=== PATIENT | female | born 1970 | race American Indian/Alaskan Native ===

== ENCOUNTER 2018-01-19 18:57 | Emergency (ER) | payer MEDICAID ==
[2018-01-19 19:26] VITALS: BP 155/101
[2018-01-19] MEDS ORDERED: FLEXERIL PO ONE (21:51)
[2018-01-19] MEDS ORDERED: REGLAN IV ONE (21:51)
[2018-01-19] MEDS ORDERED: BENADRYL IV ONE (21:51)
[2018-01-19] MEDS ORDERED: TORADOL IV ONE (21:51)
--- NOTE | 2018-01-19 21:55 | Emergency Department Report ---
ED General Adult HPI - General Chief complaint: Neck Pain/Injury Stated complaint: BACK PAIN/ARM Time Seen by Provider: 01/19/18 21:49 Source: patient Mode of arrival: Ambulatory Limitations: No Limitations - History of Present Illness Initial comments: 47-year-old -[place] female presents to the emergency room for complaint of upper neck pain. Patient has a history of recurrent back pain. Also she complains of upper arm pain that radiates to her right hand. Patient suspects that she was bitten by a spider on Friday initially there was obvious bite argueta but now healing except for continued pain. Patient complains of a headache with light sensitivity and nausea. Patient reports that she was seen by her primary care doctor Dr. Ward and was placed on diclofenac and Flexeril. Patient has a past medical history of hypertension reports that she takes her medication as prescribed. She has no known drug allergies.. -: days(s) (4) Location: neck, right, upper extremity Radiation: extremity Severity scale (0 -10): 10 Quality: burning, aching Consistency: constant Improves with: none Worsens with: none Treatments Prior to Arrival: NSAID (last dose on Friday) - Related Data Previous Rx's Medication Instructions Recorded Last Taken Type Butalb/Acetamin/Caff 50-325-40 1 tab PO Q6HR PRN #12 tab 01/19/18 Unknown Rx [Fioricet] Allergies Allergy/AdvReac Type Severity Reaction Status Date / Time No Known Allergies Allergy Unverified 01/19/18 19:34 ED Review of Systems ROS: Stated complaint: BACK PAIN/ARM Other details as noted in HPI Constitutional: denies: chills, fever Gastrointestinal: nausea. denies: abdominal pain, vomiting Musculoskeletal: arthralgia (neck pain, right arm pain that radiates to the fingers) Neurological: headache Psychiatric: denies: anxiety, depression Hematological/Lymphatic: denies: easy bleeding, easy bruising ED Past Medical Hx - Past Medical History Hx Hypertension: Yes Hx Headaches / Migraines: Yes Additional medical history: recurrent back pain - Surgical History Past Surgical History?: No - Social History Smoking Status: Never Smoker Substance Use Type: None - Medications Home Medications: Home Medications Medication Instructions Recorded Confirmed Last Taken Type Butalb/Acetamin/Caff 50-325-40 1 tab PO Q6HR PRN #12 tab 01/19/18 Unknown Rx [Fioricet] ED Physical Exam - General Limitations: No Limitations General appearance: alert, in no apparent distress, other (nontoxic) - Head Head exam: Present: atraumatic, normocephalic - Eye Eye exam: Present: EOMI - ENT ENT exam: Present: mucous membranes moist - Respiratory Respiratory exam: Present: normal lung sounds bilaterally. Absent: respiratory distress - Cardiovascular Cardiovascular Exam: Present: regular rate, normal rhythm. Absent: systolic murmur, diastolic murmur, rubs, gallop - Expanded Upper Extremity Exam Right Shoulder Exam: Present: full ROM, tenderness (right trapeze) Upper Arm exam: Present: full ROM, tenderness - Neurological Exam Neurological exam: Present: alert, oriented X3 - Expanded Neurological Exam Expanded Patient oriented to: Present: person, place, time Speech: Present: fluid speech Cranial nerves: EOM's Intact: Normal, Gag Reflex: Normal, Tongue Deviation: Normal, Nystagmus: Normal, Facial Sensation: Normal, Facial Palsy with Forehead Movement: Normal, Facial Palsy without Forehead Movement: Normal Cerebellar function: Finger to Nose: Normal, Heel to Wiley: Normal, Romberg: Normal Upper motor neuron: Nirav Neglect: Normal, Pronator Drift: Normal, Babinski Sign : Normal Sensory exam: Upper Extremity Light Touch: Normal, Upper Extremity Pin Prick: Normal, Upper Extremity Temperature: Normal, UE 2 Point Discrimination: Normal, Lower Extremity Light Touch: Normal, Lower Extremity Temperature: Normal, LE 2 Point Discrimination: Normal Motor strength exam: RUE: 5, LUE: 5, RLE: 5, LLE: 5 Best Eye Response (Dolores): (4) open spontaneously Best Motor Response (Dolores): (6) obeys commands Best Verbal Response (Dolores): (5) oriented Dolores Total: 15 - Psychiatric Psychiatric exam: Present: normal affect, normal mood - Skin Skin exam: Present: warm, dry, intact, normal color. Absent: rash ED Course Vital Signs 01/19/18 01/19/18 19:24 19:28 Temperature 99.6 F 99.6 F Pulse Rate 66 67 Respiratory 18 18 Rate Blood Pressure 155/101 155/101 O2 Sat by Pulse 100 100 Oximetry - Reevaluation(s) Reevaluation #1: 01/19/18 23:08 Patient reports that she feels better since having IV medication. ED Medical Decision Making - Medical Decision Making Patient has been evaluated by this provider in fast track. IV placement for Benadryl 25 mg IV, Reglan 10 mg IV and Toradol 15 mg IV for pain management and headache. Flexeril 10 mg order for muscle spasms. Patient is to follow-up with her primary care provider Dr. Ward Critical care attestation.: If time is entered above; I have spent that time in minutes in the direct care of this critically ill patient, excluding procedure time. ED Disposition Clinical Impression: Pain in right upper arm Headache Qualifiers: Headache type: unspecified Headache chronicity pattern: acute headache Intractability: intractable Qualified Code(s): R51 - Headache Disposition: - TO HOME OR SELFCARE Is pt being admited?: No Does the pt Need Aspirin: No Condition: Stable Instructions: Migraine Headache (ED) Additional Instructions: Take migraine medication as needed for headaches. You can take over-the- counter Tylenol or Motrin for arm pain if it persist follow-up which her primary care provider Prescriptions: Butalb/Acetamin/Caff 50-325-40 [Fioricet] 1 tab PO Q6HR PRN #12 tab PRN Reason: Headache Referrals: PRIMARY CARE,MD [Primary Care Provider] - 3-5 Days Your, provider [Other] - 3-5 Days Forms: Work/School Release Form(ED)
[2018-01-20] MEDS ORDERED: NACL 0.9% 500 ML 500 ML ONE
== END 2018-01-19 23:15 | disposition home or self-care (01) ==
LOC: ED 18:57
DX: G43.909 Migraine, unspecified, not intractable, without status migrainosus (principal); M79.621 Pain in right upper arm; I10 Essential (primary) hypertension; Z79.899 Other long term (current) drug therapy
CPT/HCPCS: 96374; 96375; 99283; J1200; J1885; J2765; J7040

== ENCOUNTER 2018-07-16 12:47 | Outpatient (CLI) | payer MEDICAID ==
--- NOTE | 2018-07-16 15:21 | XRay Report ---
ROUTINE CHEST, TWO VIEWS: HISTORY: chest pain. The trachea, heart, mediastinal contour, lung lechuga and bony thorax are unremarkable. IMPRESSION: Unremarkable chest x-ray.
--- NOTE | 2018-07-16 15:22 | XRay Report ---
BILATERAL HIPS WITH PELVIS, 3 VIEWS: History: Pain. Findings: Bone mineralization is within normal limits. There is no evidence for fracture, dislocation or pelvic diastasis. No advanced joint pathology is detected. The soft tissues are unremarkable. Impression: Unremarkable exam.
--- NOTE | 2018-07-16 15:23 | XRay Report ---
AP AND LATERAL LUMBOSACRAL SPINE: History: Pain. There is normal bone mineralization. 3 mm anterolisthesis of L4 with respect to L5 is identified which appears to be secondary to degenerative facet arthropathy. No pars defect is identified. The remaining lumbar vertebra are normal in height and alignment. There is moderate facet arthropathy at L2-3, L4-5 and L5-S1. The sacrum and SI joints are unremarkable. No displaced fracture or bone lesion is identified. IMPRESSION: Lumbar spondylosis as described above.
--- NOTE | 2018-07-17 08:17 | Mammography Report ---
Bilateral mammogram: No previous studies available. CAD study utilized. Findings Scattered glandular parenchyma bilaterally. Focal 4 mm asymmetry identified in the upper posterior right breast. No microcalcifications seen. Normal axilla. Impression: Focal dense asymmetry right breast. Recommend comparison with previous studies. If previous studies are not available Spot compression and if necessary sonographic examination advised. BI-RADS CATEGORY: 0 = Needs additional imaging evaluation ACR BI-RADS MAMMOGRAPHIC CODES: 0 = Needs additional imaging evaluation; 1 = Negative; 2 = Benign; 3 = Probably benign; 4 = Suspicious; 5 = Malignant; 6 = Known biopsy-proven malignancy COMMENT: 1. Dense breast tissue, i.e., adenosis, fibrocystic changes, etc., may obscure an underlying neoplasm. 2. Approximately 10% of cancers are not detected with mammography. 3. A negative mammography report should not delay biopsy if a clinically suspicious mass is present. COMMENT: Patient follow-up letters are generated in [employer].
== END 2018-07-16 12:48 | disposition home or self-care (01) ==
LOC: MAMMO 12:47
PROVIDERS: ATTEND Family Medicine
DX: Z12.31 Encounter for screening mammogram for malignant neoplasm of breast (principal); M47.816 Spondylosis without myelopathy or radiculopathy, lumbar region; M46.87 Other specified inflammatory spondylopathies, lumbosacral region; M43.16 Spondylolisthesis, lumbar region; R07.9 Chest pain, unspecified; R10.2 Pelvic and perineal pain; I10 Essential (primary) hypertension; M25.552 Pain in left hip; M25.551 Pain in right hip
CPT/HCPCS: 71046; 72100; 73521; 77067